=== PATIENT | male | born 1955 | race Two or more races ===

== ENCOUNTER 2022-04-16 10:22 | Emergency (ER) | payer OTHER ==
[~2022-04-16] VITALS: Ht 170.2 cm; Wt 90.7 kg
--- NOTE | 2022-04-16 10:40 | NUR ---
PT BIB FAMILY FROM HOME C/O WORSENING PRODUCTIVE COUGH X 10 DAYS, SOB WORST ON EXERTION FOR THE PAST COUPLE OF DAYS. 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 PLACED ON MONITOR. VSS. AWAITING MD OTTO.
--- NOTE | 2022-04-16 10:41 | NUR ---
DR PATEL AT BEDSIDE FOR EVAL
[2022-04-16] MEDS ORDERED: predniSONE 20 MG TABLET ONE (10:51)
[2022-04-16] MEDS ORDERED: IPRATROPIUM NEB FS 0.5 MG/2.5 ML AMPUL.NEB ONE (10:58)
[2022-04-16] MEDS ORDERED: ALBUTEROL FS 2.5 MG/3 ML VIAL.NEB ONE (10:58)
--- NOTE | 2022-04-16 10:58 | NUR ---
SON [phone]
[2022-04-16] MEDS ORDERED: IPRATROPIUM NEB FS 0.5 MG/2.5 ML AMPUL.NEB NEB ONE (11:00)
[2022-04-16] MEDS ORDERED: ALBUTEROL FS 2.5 MG/3 ML VIAL.NEB NEB ONE (11:00)
[2022-04-16] MEDS ORDERED: predniSONE 20 MG TABLET PO ONE (11:00)
--- NOTE | 2022-04-16 11:03 | NUR ---
IV LINE STARTED BLOOD DRAWN AND SENT TO LAB.
--- NOTE | 2022-04-16 11:05 | NUR ---
RADIOLOGY AT BEDSIDE FOR CHEST XRAY.
--- NOTE | 2022-04-16 11:18 | NUR ---
COVID ANTIGEN, FLU, RSV SWAB COLLECTED. SENT TO LAB.
[2022-04-16 11:19] LABS: BASOPHILS % (AUTO) 0.2 % (0.0-2.0); EOSINOPHILS % (AUTO) 1.2 % (0.0-6.0); HEMATOCRIT 44 % (39-51); HEMOGLOBIN 13.4 g/dL (13.5-17.5); LYMPHOCYTES # (AUTO) 1.3 K/uL (0.8-4.8); LYMPHOCYTES % (AUTO) 10.7 % (20.0-44.0); MEAN CORPUSCULAR HGB CONC 30 g/dl (31.0-36.0); MEAN CORPUSCULAR VOLUME 64 fL (80-96); MONOCYTES % (AUTO) 8.5 % (2.0-12.0); NEUTROPHILS # (AUTO) 9.6 K/uL (1.8-8.9); NEUTROPHILS % (AUTO) 79.4 % (43.0-81.0); PLATELET COUNT (AUTO) 199 K/uL (150-450); RED BLOOD CELL COUNT(AUTO) 6.84 MIL/uL (4.5-6.0); WHITE BLOOD COUNT (AUTO) 12.1 K/uL (4.3-11.0)
[2022-04-16 11:27] LABS: CALCIUM, SERUM 8.5 mg/dL (8.5-10.1); CARBON DIOXIDE 31 mmol/L (21-32); CHLORIDE 103 mmol/L (98-107); CREATININE 1.1 mg/dL (0.6-1.3); GLUCOSE 128 mg/dL (74-106); POTASSIUM 4.2 mmol/L (3.5-5.1); SODIUM SERUM 140 mmol/L (136-145); UREA NITROGEN, BLOOD 20 mg/dL (7-18)
[2022-04-16 11:40] LABS: ALANINE AMINOTRANSFERASE 16 U/L (12-78); ALBUMIN 3.4 g/dL (3.4-5.0); ALKALINE PHOSPHATASE 75 U/L (46-116); ASPARTATE AMINOTRANSFERASE 17 U/L (15-37); BILIRUBIN,DIRECT 0.2 mg/dL (0.0-0.2); BILIRUBIN,TOTAL 0.8 mg/dL (0.2-1.0); TOTAL PROTEIN, SERUM 7.4 g/dL (6.4-8.2)
[2022-04-16] MEDS ORDERED: IPRA3AMP23 IH (12:48)
[2022-04-16] MEDS ORDERED: PRED50TA PO (12:48)
[2022-04-16] MEDS ORDERED: AZIT500T PO (12:48)
[2022-04-16] MEDS ORDERED: GUAI1TBM19 PO (12:48)
[2022-04-16] MEDS ORDERED: ALBU18HF2 INH (12:48)
--- NOTE | 2022-04-16 13:07 | NUR ---
Patient discharged to home in stable condition. Written and verbal after care instructions given. Patient verbalizes understanding of instruction.Patient discharged to home in stable condition. Written and verbal after care instructions given. Patient verbalizes understanding of instruction.
[2022-04-16 13:09] VITALS: BP 133/65
[2022-04-16 16:57] LABS: BAND % (MANUAL) 3 % (0.0-5.0); EOSINOPHILS % (MANUAL) 0 % (0-4); LYMPHOCYTES % (MANUAL) 11 % (16-48); MONOCYTES % (MANUAL) 9 % (0-11.0); NEUTROPHILS % (MANUAL) 77 (42-76)
== END 2022-04-16 13:11 | disposition home or self-care (01) ==
LOC: ER 10:38
DX: J40 Bronchitis, not specified as acute or chronic (principal); Z20.822 Contact with and (suspected) exposure to COVID-19; I10 Essential (primary) hypertension; F17.290 Nicotine dependence, other tobacco product, uncomplicated
CPT/HCPCS: 99285; 71045; 87426; 99406; 93005; 87804; 85025; 80048; 80076; 36415; 87420; 84484; 85730; 83880; 94640; 85007; J7512; C9803